=== PATIENT | male | born 1995 | race Caucasian/White ===

== ENCOUNTER 2017-01-05 19:37 | Emergency (ER) | payer SELFPAY ==
[~2017-01-05] VITALS: Ht 175.3 cm; Wt 113.4 kg
[2017-01-05 19:53] VITALS: BP 141/72
--- NOTE | 2017-01-05 20:48 | NUR ---
PT RETURN FROM XRAY TO LOBBY
--- NOTE | 2017-01-05 23:19 | NUR ---
PATIENT LEFT WITHOUT BEING SEEN BY DR. TUTTLE. NO FURTHER CARE PROVIDED FOR PATIENT.
== END 2017-01-05 23:17 | disposition left against medical advice (07) ==
LOC: MED 19:37
DX: M79.644 Pain in right finger(s) (principal); Z53.21 Procedure and treatment not carried out due to patient leaving prior to being seen by health care provider
CPT/HCPCS: 73140; 99281